=== PATIENT | male | born 1980 | race Caucasian/White ===

== ENCOUNTER 2018-11-07 10:03 | Emergency (ER) | payer MEDICAID ==
[~2018-11-07] VITALS: Ht 172.7 cm; Wt 75.7 kg
--- NOTE | 2018-11-07 10:12 | NUR ---
PATIENT AMBULATED TO ER BED 5.
[2018-11-07 10:13] VITALS: BP 130/72
--- NOTE | 2018-11-07 10:20 | NUR ---
PT COMPLAINS OF LUMP UNDER SKIN OVER RIGTH THIGH. DENIES PAIN, X 2 MONTHS. MASS IS SOFT AND MOVEABLE. SIZE APPROX DIAMETER OF A DIME. VSS; PATIENT POSITIONED FOR COMFORT; HOB ELEVATED; BEDRAILS UP X1; BED DOWN. ER MD MADE AWARE OF PT STATUS.
--- NOTE | 2018-11-07 10:48 | NUR ---
PT WAS UPSET WITH DR ASSESSMENT. WALKED OUT OF ER.
[2018-11-07 10:49] VITALS: BP 130/72
== END 2018-11-07 10:48 | disposition home or self-care (01) ==
LOC: MED 10:03
DX: L72.8 Other follicular cysts of the skin and subcutaneous tissue (principal); R45.6 Violent behavior; Z85.6 Personal history of leukemia
CPT/HCPCS: 99281

== ENCOUNTER 2019-02-07 09:50 | Emergency (ER) | payer MEDICAID ==
[~2019-02-07] VITALS: Ht 172.7 cm; Wt 77.1 kg
[2019-02-07 09:59] VITALS: BP 135/81
--- NOTE | 2019-02-07 10:05 | NUR ---
38 Y M BIB SELF C/O MOIST COUGH X 1 WEEK, ANTERIOR CHEST WALL PAIN 4/10, EPISTAXIS, FATIGUE, BODY ACHES BED IS DOWN, LOCKED, BED RAIL X 1, ERMD NOTIFIED OF PATIENT CONDITION PHM- LEUKEMIA A CHILD RX- NIQUIL, MUSINEX, TAMIFLU
--- NOTE | 2019-02-07 10:22 | NUR ---
DR HANKS AT BEDSIDE
--- NOTE | 2019-02-07 10:32 | NUR ---
RAD AT BEDSIDE
[2019-02-07 11:15] VITALS: BP 128/78
--- NOTE | 2019-02-07 11:16 | NUR ---
Patient discharged with v/s stable. Written and verbal after care instructions given and explained. Patient alert, oriented and verbalized understanding of instructions. Ambulatory with steady gait. All questions addressed prior to discharge. ID band removed. Patient advised to follow up with PMD. Rx of TESSALON PERLES, ALBUTEROL, PREDNISONE given. Patient educated on indication of medication including possible reaction and side effects. Opportunity to ask questions provided and answered.
== END 2019-02-07 11:16 | disposition home or self-care (01) ==
LOC: MED 09:50
DX: J98.01 Acute bronchospasm (principal); B34.9 Viral infection, unspecified; R03.0 Elevated blood-pressure reading, without diagnosis of hypertension; Z88.6 Allergy status to analgesic agent
CPT/HCPCS: 71045; 99283; Q0092

== ENCOUNTER 2019-11-30 16:33 | Emergency (ER) | payer MEDICAID ==
[~2019-11-30] VITALS: Ht 175.3 cm; Wt 74.8 kg
[2019-11-30 16:50] VITALS: BP 145/65
--- NOTE | 2019-11-30 16:52 | NUR ---
TRIAGE COMPLETE. VSS. RETURNED TO LOBBY TO WAIT FOR BED IN ED.
--- NOTE | 2019-11-30 17:49 | NUR ---
PT TAKEN TO BED 7.
--- NOTE | 2019-11-30 17:52 | NUR ---
ADPT C/O LEFT SIDED RIB PAIN RADIATING TO LEFT MEDIAL BACK FOR 6 DAYS. PT STATES THE PAIN EXACERBATED WHILE BREATHING. PT IS NOT ABLE TO IDENTIFY ANYTHING THAT CAN MAKE HIM BETTER. PT DENIES HAVING PERICARDICAL CHEST PAIN, SOB, NAUSEA OR VOMITING. PATIENT STATES PAIN OF 8/10 AT THIS TIME; VSS; PATIENT POSITIONED FOR COMFORT; HOB ELEVATED; BEDRAILS UP X1; BED DOWN. ER MD MADE AWARE OF PT STATUS.
--- NOTE | 2019-11-30 19:15 | NUR ---
Pt report given to LATISHA Kc. Transfer of care at this time.
--- NOTE | 2019-11-30 19:15 | NUR ---
REPORT GIVEN FROM NU GOOD. TRANSFER OF CARE GIVEN.
--- NOTE | 2019-11-30 19:24 | NUR ---
PT TAKEN TO XRAY IN W/C PT ABLE TO AMBULATE TO W/C WITHOUT ASSISTANCE.
--- NOTE | 2019-11-30 19:36 | NUR ---
PT RETURNED FROM X-RAY. PT AMBULATED FROM W/C TO BED WITHOUT ASSISTANCE.
[2019-11-30] MEDS ORDERED: KETOROLAC 60 MG/2 ML VIAL IM ONE (19:45)
--- NOTE | 2019-11-30 20:38 | NUR ---
PT RESTING IN BED EYES OPEN. RESPIRATIONS ARE EVEN AND UNLABORED. SKIN IS WARM AND DRY TO TOUCH. PT HAS C/O 6/10 LEFT SIDE PAIN. RADIATING TO L FLANK. PT DENIES SOB. O2SAT @ 98% ON RA. BED IN LOWEST POSITON AND LOCKED IN PLACE.
[2019-11-30 20:51] VITALS: BP 137/82
--- NOTE | 2019-11-30 20:53 | NUR ---
DR MUNIZ MADE AWARE THAT PT WAS D/C WITH MOTRIN AND PT HAS IBUPROFEN ALLERGY. PT STATED,"IT'S FINE I'M LEAVING I HAVE TO WORK IN A FEW HOURS AND I DON'T WANT TO KEEP WAITING."
== END 2019-11-30 20:50 | disposition home or self-care (01) ==
LOC: MED 16:33
DX: S22.32XA Fracture of one rib, left side, initial encounter for closed fracture (principal); Z88.8 Allergy status to other drugs, medicaments and biological substances; X58.XXXA Exposure to other specified factors, initial encounter; Y93.89 Activity, other specified; Y92.89 Other specified places as the place of occurrence of the external cause; Y99.8 Other external cause status
CPT/HCPCS: 71101; 96372; 99283; J1885

== ENCOUNTER 2020-02-19 05:07 | Emergency (ER) | payer MEDICAID ==
[~2020-02-19] VITALS: Ht 175.3 cm; Wt 73.2 kg
[2020-02-19 05:13] VITALS: BP 156/96
--- NOTE | 2020-02-19 05:23 | NUR ---
39 YEAR OLD MALE COMPLAINS OF SORE THROAT X 9 HOURS. PATIENT STATES HE FEELS PROGRESSIVE SWELLING SINCE HE ATE SALMON THAT HIS FAMILY MADE. PATIENT DENIES SHORTNESS OF BREATHE, RASHES, OR ANY OTHER SYMPTOMS. PATIENT AOX4, BREATHING EVEN AND UNLABORED, SKIN WARM AND DRY. BED IN LOWEST POSITION, LOCKED, BED RAIL UPX1. ERMD AT BEDSIDE PMH - LEUKEMIA AT AGE 14 ALLERGIES - IBUPROFEN
[2020-02-19] MEDS ORDERED: FAMOTIDINE 20 MG TAB PO ONE (05:25)
[2020-02-19] MEDS ORDERED: methylPREDNISolone SS 125 MG/2 ML VIAL IVP ONE (05:25)
[2020-02-19] MEDS ORDERED: methylPREDNISolone SS 125 MG in WATER STERILE 2 ML IM ONE (05:30)
[2020-02-19 06:15] VITALS: BP 156/96
--- NOTE | 2020-02-19 06:16 | NUR ---
Patient discharged with v/s stable. Written and verbal after care instructions about food allergies given and explained. Patient alert, oriented and verbalized understanding of instructions. Ambulatory with steady gait. All questions addressed prior to discharge. ID band removed. Patient advised to follow up with PMD. Rx of benadryl, pepcid, and prednisone given. Patient educated on indication of medication including possible reaction and side effects. Opportunity to ask questions provided and answered.
== END 2020-02-19 06:15 | disposition home or self-care (01) ==
LOC: MED 05:07
DX: J02.9 Acute pharyngitis, unspecified (principal); Z88.6 Allergy status to analgesic agent
CPT/HCPCS: 96372; 99283; J2930

== ENCOUNTER 2020-02-22 21:47 | Emergency (ER) | payer MEDICAID ==
[~2020-02-22] VITALS: Ht 175.3 cm; Wt 73.0 kg
[2020-02-22 21:51] VITALS: BP 154/103
[2020-02-22 22:07] VITALS: BP 154/103
== END 2020-02-22 22:07 | disposition home or self-care (01) ==
LOC: MED 21:47
DX: T78.40XA Allergy, unspecified, initial encounter (principal); Z88.6 Allergy status to analgesic agent; Z85.9 Personal history of malignant neoplasm, unspecified; X58.XXXA Exposure to other specified factors, initial encounter
CPT/HCPCS: 99283

== ENCOUNTER 2020-02-25 19:08 | Emergency (ER) | payer MEDICAID ==
[~2020-02-25] VITALS: Ht 172.7 cm; Wt 73.9 kg
[2020-02-25 19:16] VITALS: BP 138/95
--- NOTE | 2020-02-25 19:23 | NUR ---
39Y/O M CAME IN TO ER WITH COMPLAINTS OF TONGUE SWELLING AND SOME SLIGHT DIFFICULTY WITH SWALLOWING. PT CAME IN TO [facility] THIS PAST WEDNESDAY FOR ALLERGIC REACTION TO FOOD SEASONING, PT BACK IN FOR SAME SYMPTOMS TODAY. SYMPTOMS STARTED IMMEDIATELY AFTER EATING, 2 HOURS AGO. DENIES N/V/D, NO COUGH NO SIGNS OF RASH/HIVES/ANGIOEDEMA. TONGUE SLIGHTLY SWOLLEN. ABLE TO MAKE FULL SENTENCES W/O SOB. PREVIOUS ER VISIT, PRESCRIBED PEPCID,PREDNISONE, BANOPHEN. PT REPORTS TAKING MEDS TODAY FOR TONGUE SWELLING, NO ALLEVIATIONS OF SYMPTOMS.
--- NOTE | 2020-02-25 19:30 | NUR ---
PT REPORTS ONLY PAST MEDICAL HX: LEUKEMIA, DOES NOT RECEIVE ANY TREATMENTS CURRENTLY. ALLERGIES: IBUPROFEN/MOTRIN PAIN/DISCOMFORT: 01/01 SIDERAILS UP x1, ON ROOM AIR, WILL CONT. TO MONITOR.
[2020-02-25] MEDS ORDERED: EPINEPHrine 1:1000 - 1 MG/ML AMP SUBQ ONE (20:05)
--- NOTE | 2020-02-25 20:06 | NUR ---
Dr. Goodrich examining patient.
[2020-02-25] MEDS ORDERED: methylPREDNISolone SS 125 MG in WATER STERILE 2 ML IV ONE (20:10)
[2020-02-25] MEDS ORDERED: diphenhydrAMINE 50 MG/ML VIAL IVP ONE (20:10)
[2020-02-25] MEDS ORDERED: NACL 0.9% 1,000 ML IV ONE (20:10)
--- NOTE | 2020-02-25 20:12 | NUR ---
PERIPHERAL IV INSERTED SUCCESSFULLY ON FIRST ATTEMPT, RAC 20G, GOOD BLOOD RETURN, FLUSHED W/O SYMPTOMS. MEDS GIVEN. PT TOLERATED WELL. CONNECTED TO SELVAGE MACHINE OPERATOR. NO COMPLAINTS AT THIS TIME. VITALS STABLE.
[2020-02-25] MEDS ORDERED: methylPREDNISolone SS 125 MG/2 ML VIAL ONE (20:17)
[2020-02-25] MEDS ORDERED: WATER STERILE 10 ML MC ONE (20:17)
--- NOTE | 2020-02-25 21:15 | NUR ---
PT AMBULATED TO RESTROOM AND BACK TO BED W/O INCIDENT. MD IN TO ASSESS PT. VITALS WNL.
--- NOTE | 2020-02-25 23:00 | NUR ---
PT RESTING COMFORTABLY, EYES CLOSED. CONNECTED TO MONITOR, ALL VITALS WNL-BP: 138/89, HR-94, 99% RA. SIDERAILS UP x1.
[2020-02-26 01:01] VITALS: BP 141/98
--- NOTE | 2020-02-26 01:01 | NUR ---
Patient discharged with v/s stable. Written and verbal after care instructions given and explained. Patient verbalized understanding. Ambulatory with steady gait. PT IN STABLE CONDITION. All questions addressed prior to discharge. Advised to follow up with PMD.
--- NOTE | 2020-02-26 08:18 | NUR ---
Late entry. Confirmed with RN that 0.9 NS IV completed at 2119
== END 2020-02-26 01:01 | disposition home or self-care (01) ==
LOC: MED 19:08
DX: T78.09XA Anaphylactic reaction due to other food products, initial encounter (principal); K21.9 Gastro-esophageal reflux disease without esophagitis; Z85.6 Personal history of leukemia; Z88.8 Allergy status to other drugs, medicaments and biological substances
CPT/HCPCS: 96372; 96374; 96375; 99284; J0171; J1200; J2930; J7030

== ENCOUNTER 2020-03-31 18:46 | Emergency (ER) | payer MEDICAID ==
[~2020-03-31] VITALS: Ht 175.3 cm; Wt 72.6 kg
[2020-03-31 18:55] VITALS: BP 149/89
--- NOTE | 2020-03-31 18:59 | NUR ---
39 Y/O MALE FROM HOME C/O POSSIBLE ALLERGIC REACTION S/P EATING A TACO WITH HOT SAUCE AT 1315. STATES THROAT DISCOMFORT STARTED AROUND 1715. DENIES DIFFICULTY SWALLOWING/BREATHING. ABLE TO SPEAK IN FULL, CLEAR SENTENCES. DENIES PAIN. RR EVEN AND UNLABORED. CALM AND PLEASANT. MEDHX: LEUKEMIA ALLEGIES: IBUPROFEN
--- NOTE | 2020-03-31 19:05 | NUR ---
Pt report RECEIVED FROM LATISHA NUNO. ASSUMED care OF PT at this time.
--- NOTE | 2020-03-31 19:27 | NUR ---
DR ARELLANO EVALUATING PATIENT AT BEDSIDE.
--- NOTE | 2020-03-31 19:57 | NUR ---
Patient discharged with v/s stable. Written and verbal after care instructions given and explained. Patient verbalized understanding. Ambulatory with steady gait. All questions addressed prior to discharge. Advised to follow up with PMD.
[2020-03-31 19:58] VITALS: BP 149/89
== END 2020-03-31 19:58 | disposition home or self-care (01) ==
LOC: MED 18:46
DX: R13.10 Dysphagia, unspecified (principal); R68.2 Dry mouth, unspecified; F41.9 Anxiety disorder, unspecified; K21.9 Gastro-esophageal reflux disease without esophagitis; Z85.6 Personal history of leukemia; Z88.8 Allergy status to other drugs, medicaments and biological substances
CPT/HCPCS: 99281

== ENCOUNTER 2021-05-11 20:45 | Emergency (ER) | payer MEDICAID ==
[~2021-05-11] VITALS: Ht 172.7 cm; Wt 81.6 kg
[2021-05-11 20:47] VITALS: BP 150/85
--- NOTE | 2021-05-11 20:47 | NUR ---
TO BED AMBULATORY
--- NOTE | 2021-05-11 20:49 | NUR ---
40 Y/O MALE PATIENT PRESENTS TO ED WITH THROAT DISCOMFORT. PT STATES " I FEEL LIKE SOMETHING IS STUCK IN THERE, LIKE A PIECE OF FOOD, I FEEL NO PAIN BUT JUST DISCOMFORT." . DENIES N/V/D; SKIN IS PINK/WARM/DRY; AAOX4 WITH EVEN AND STEADY GAIT; LUNGS CLEAR BL; HR EVEN AND REGULAR; PT DENIES ANY FEVER, CP, SOB, OR COUGH AT THIS TIME; PATIENT STATES PAIN OF 0/10 AT THIS TIME; VSS; PATIENT POSITIONED FOR COMFORT; HOB ELEVATED; BEDRAILS UP X2; BED DOWN. ER MD MADE AWARE OF PT STATUS. ALLERGIES: IBUPROFEN PMH: LEUKEMIA
[2021-05-11 22:10] VITALS: BP 150/85
--- NOTE | 2021-05-11 22:10 | NUR ---
Patient discharged with v/s stable. Written and verbal after care instructions given and explained. Patient alert, oriented and verbalized understanding of instructions. All questions addressed prior to discharge. ID band removed. Patient advised to follow up with PMD. Patient educated on indication of medication including possible reaction and side effects. Opportunity to ask questions provided and answered.
== END 2021-05-11 22:10 | disposition home or self-care (01) ==
LOC: MED 20:45
DX: J02.9 Acute pharyngitis, unspecified (principal); R13.10 Dysphagia, unspecified; K21.9 Gastro-esophageal reflux disease without esophagitis; Z88.6 Allergy status to analgesic agent; Z85.6 Personal history of leukemia
CPT/HCPCS: 87081; 99283

== ENCOUNTER 2021-05-14 07:35 | Emergency (ER) | payer MEDICAID ==
[~2021-05-14] VITALS: Ht 175.3 cm; Wt 74.8 kg
[2021-05-14 07:42] VITALS: BP 136/103
--- NOTE | 2021-05-14 07:46 | NUR ---
Patient ambulated with steady gait to bed 2.
--- NOTE | 2021-05-14 07:50 | NUR ---
40 y/o M BIB self with c/c sore throat x 3 days. Patient A&Ox4, ambulatory, reports sore throat x 3 days; seen here on 05/11/21 and states he has not received Strep results. Patient reports throat pain /, sore/constant, non-radiating. Patient states pain worsens at night and when has ear pain when swallowing. Patient states Theraflu, Nyquil, and Andrews cough drops with temporary relief. Family at bedside. Bed locked in lowest position, side rails x 1, call light in reach. PMH/Meds/Sx: Denies Allergies: Ibuprofen (rxn: tongue swelling)
--- NOTE | 2021-05-14 08:01 | NUR ---
Dr. Arriaza is evaluating patient at bedside.
[2021-05-14] MEDS ORDERED: DEXAMETHASONE 10 MG/ML VIAL IM ONE (08:20)
[2021-05-14] MEDS ORDERED: ACET-2619 PO (08:23)
[2021-05-14] MEDS ORDERED: LIDO15SO PO (08:23)
[2021-05-14 08:35] VITALS: BP 136/103
--- NOTE | 2021-05-14 08:35 | NUR ---
Patient discharged with v/s stable. Written and verbal after care instructions given and explained. Patient alert, oriented and verbalized understanding of instructions. Ambulatory with steady gait. All questions addressed prior to discharge. ID band removed. Patient advised to follow up with PMD. Rx of Acetaminophen, Lidocaine Hcl given. Patient educated on indication of medication including possible reaction and side effects. Opportunity to ask questions provided and answered.
== END 2021-05-14 08:35 | disposition home or self-care (01) ==
LOC: MED 07:35
DX: J02.9 Acute pharyngitis, unspecified (principal); K21.9 Gastro-esophageal reflux disease without esophagitis; Z79.899 Other long term (current) drug therapy; Z88.6 Allergy status to analgesic agent; Z85.6 Personal history of leukemia
CPT/HCPCS: 96372; 99283; J1100

== ENCOUNTER 2021-05-20 10:09 | Emergency (ER) | payer MEDICAID ==
[~2021-05-20] VITALS: Ht 172.7 cm; Wt 81.6 kg
[~2021-05-20 10:09] MED LIST: ACET-2619 PO; LIDO15SO PO
--- NOTE | 2021-05-20 10:19 | NUR ---
Patient ambulated to bed 7. RN evaluating the patient at bedside.
[2021-05-20 10:25] VITALS: BP 136/71
--- NOTE | 2021-05-20 10:30 | NUR ---
40 y/o BIB self from home with c/c mouth pain x 4 days. Patient A&Ox4, ambulatory, reports he was seen here for throat pain on 05/14, discharged with Tylenol and Lidocaine. Patient states mouth and throat pain has since resolved, however, on Wednesday he noticed white blisters on top of tongue. Patient reports pain 6/10, aching/constant, that worsens with eating. Patient denies any medications prior to arrival; reports warm salt water rinses as advised from previous discharge. Pt denies N/V, fever, chills, headache, dizziness. Pt denies any medications for pain prior to arrival. VSS; RR even/unlabored. Bed locked in lowest position, side rails x 1, call light in reach. PMH: leukemia; remission for 30 yrs Allergies: ibuprofen Meds: Denies
--- NOTE | 2021-05-20 11:13 | NUR ---
Dr. Hernandez is evaluating patient at bedside.
--- NOTE | 2021-05-20 11:40 | NUR ---
Strep A swab and culture collected, handed to CPT Pato at ER bedside.
--- NOTE | 2021-05-20 11:40 | NUR ---
Lab at bedside for blood draw.
--- NOTE | 2021-05-20 11:45 | NUR ---
Patient request status update regarding discharge plan.
--- NOTE | 2021-05-20 11:50 | NUR ---
Patient requesting to leave. Advised to wait for results of lab and swabs to receive appropriate plan of care upon discharge.
--- NOTE | 2021-05-20 12:00 | NUR ---
Patient states he would like to sign out AMA due to "having things to do today." Dr. Hernandez made aware.
[2021-05-20 12:06] LABS: BASOPHILS # (AUTO) 0.1 K/uL (0.00-0.22); BASOPHILS % (AUTO) 0.8 % (0.0-2.0); EOSINOPHILS # (AUTO) 0.3 K/uL (0-0.4); EOSINOPHILS % (AUTO) 2.6 % (0.0-4.0); HEMATOCRIT 46.7 % (36-52); HEMOGLOBIN 15.8 g/dL (12.0-18.0); LYMPHOCYTES # (AUTO) 3.3 K/uL (2.0-11.5); LYMPHOCYTES % (AUTO) 32.7 % (20.5-51.1); MEAN CORPUSCULAR HEMOGLOBIN 33 pg (27-31); MEAN CORPUSCULAR HGB CONC 34 g/dL (33-37); MEAN CORPUSCULAR VOLUME 97.2 fL (80-94); MONOCYTES # (AUTO) 1.1 K/uL (0.8-1.0); MONOCYTES % (AUTO) 10.9 % (1.7-9.3); NEUTROPHILS # (AUTO) 5.4 K/uL (1.8-7.7); PLATELET COUNT (AUTO) 287 K/uL (140-450); RED CELL DISTRIBUTION WIDTH 14.5 % (11.6-13.7); WHITE BLOOD COUNT (AUTO) 10.2 K/uL (4.8-10.8)
--- NOTE | 2021-05-20 12:08 | NUR ---
Dr. Hernandez is reevaluating patient at bedside.
--- NOTE | 2021-05-20 12:14 | NUR ---
Contacted lab for ETA per Dr. Hernandez request; laboratory geneticist states HIV rapid 25min.
--- NOTE | 2021-05-20 12:17 | NUR ---
Lab called back; states HIV Rapid Screen ETA 1 hour.
--- NOTE | 2021-05-20 12:17 | NUR ---
Patient requesting to sign out AMA. Dr. Hernandez at bedside aware. MT preparing AMA paperwork. Addendum: 05/20/[address] at [address] [facility] [address] Hernandez to discharge
[2021-05-20 12:28] VITALS: BP 136/71
== END 2021-05-20 12:28 | disposition home or self-care (01) ==
LOC: MED 10:09
DX: K14.8 Other diseases of tongue (principal); K21.9 Gastro-esophageal reflux disease without esophagitis; Z88.6 Allergy status to analgesic agent; Z79.899 Other long term (current) drug therapy; Z85.6 Personal history of leukemia; Z98.890 Other specified postprocedural states
CPT/HCPCS: 36415; 85025; 87081; 99283

== ENCOUNTER 2021-05-22 05:05 | Emergency (ER) | payer MEDICAID ==
[~2021-05-22] VITALS: Ht 172.7 cm; Wt 81.6 kg
[2021-05-22 05:16] VITALS: BP 144/94
[2021-05-22 05:38] VITALS: BP 144/94
== END 2021-05-22 05:38 | disposition home or self-care (01) ==
LOC: MED 05:05
DX: R59.9 Enlarged lymph nodes, unspecified (principal)
CPT/HCPCS: 99281

== ENCOUNTER 2021-10-17 12:15 | Emergency (ER) | payer MEDICAID ==
[~2021-10-17] VITALS: Ht 175.3 cm; Wt 75.0 kg
[2021-10-17 12:30] VITALS: BP 148/74
--- NOTE | 2021-10-17 12:35 | NUR ---
C/O BILAT FOOT PAIN /SWELLING AND RT SHOULDER PAIN X 5-6 DAYS HX-LEUKEMIA, THYROID
--- NOTE | 2021-10-17 12:37 | NUR ---
PT AMB TO ER BED 2
--- NOTE | 2021-10-17 12:38 | NUR ---
PATIENT AMBULATED TO BED 2 AT THIS TIME.
[2021-10-17] MEDS ORDERED: ACET-1194 PO (13:01)
[2021-10-17 13:18] VITALS: BP 148/74
--- NOTE | 2021-10-17 13:22 | NUR ---
Patient discharged with v/s stable. Written and verbal after care instructions given and explained. Patient alert, oriented and verbalized understanding of instructions. Ambulatory with steady gait. All questions addressed prior to discharge. ID band removed. Patient advised to follow up with PMD. Rx of tylenol,lidocaine viscous given. Patient educated on indication of medication including possible reaction and side effects. Opportunity to ask questions provided and answered.
== END 2021-10-17 13:22 | disposition home or self-care (01) ==
LOC: MED 12:15
DX: M25.571 Pain in right ankle and joints of right foot (principal); M25.572 Pain in left ankle and joints of left foot; K21.9 Gastro-esophageal reflux disease without esophagitis; Z79.899 Other long term (current) drug therapy; Z88.6 Allergy status to analgesic agent; Z85.6 Personal history of leukemia
CPT/HCPCS: 81002; 99283

== ENCOUNTER 2021-11-06 10:35 | Emergency (ER) | payer MEDICAID ==
[~2021-11-06] VITALS: Ht 172.7 cm; Wt 77.1 kg
[~2021-11-06 10:35] MED LIST changes: +ACET-1194 PO; -ACET-2619 PO; -LIDO15SO PO
[2021-11-06 10:40] VITALS: BP 146/117
--- NOTE | 2021-11-06 10:51 | NUR ---
wheelchair assist to bed 03
--- NOTE | 2021-11-06 10:53 | NUR ---
41 y/o male bib self from home, c/o left ankle pain for 2 days, tingling sensation, pain has worsened. limited rom with flex and extension on left foot. pt ambulates with cane. denies fall, overexertion, or injury to area. denies sob, cough, cp, fevers or chills. upon assessment, pt has redness and slight swelling on left ankle. no abrasions, lacs or bruising visible in area. no pitting edema. pmh: leukemia, bone marrow transplant allergy: ibuprofen (throat closing, tongue swelling) med: synthroid
--- NOTE | 2021-11-06 11:39 | NUR ---
RAD at bedside
[2021-11-06] MEDS: HYDROcodone/APAP 5/325 MG 1 TAB TAB PO ONE (11:42)
--- NOTE | 2021-11-06 12:01 | NUR ---
Lab at bedside
[2021-11-06 12:12] LABS: BASOPHILS # (AUTO) 0.1 K/uL (0.00-0.22); BASOPHILS % (AUTO) 0.6 % (0.0-2.0); EOSINOPHILS # (AUTO) 0.2 K/uL (0-0.4); EOSINOPHILS % (AUTO) 1.7 % (0.0-4.0); HEMATOCRIT 43.4 % (36-52); LYMPHOCYTES # (AUTO) 3.5 K/uL (2.0-11.5); LYMPHOCYTES % (AUTO) 35.2 % (20.5-51.1); MEAN CORPUSCULAR HEMOGLOBIN 33 pg (27-31); MEAN CORPUSCULAR HGB CONC 35 g/dL (33-37); MEAN CORPUSCULAR VOLUME 94.3 fL (80-94); NEUTROPHILS # (AUTO) 5.2 K/uL (1.8-7.7); NEUTROPHILS % (AUTO) 52.5 % (42.2-75.2); PLATELET COUNT (AUTO) 264 K/uL (140-450); RED CELL DISTRIBUTION WIDTH 13.9 % (11.6-13.7); WHITE BLOOD COUNT (AUTO) 9.9 K/uL (4.8-10.8)
[2021-11-06 12:32] LABS: ANION GAP 9.6 (8-16); CARBON DIOXIDE 25.8 mmol/L (21-32); CREATININE 1.2 mg/dL (0.6-1.3); POTASSIUM 4.4 mmol/L (3.5-5.1); TOTAL BILIRUBIN 0.4 mg/dL (0.0-1.0)
--- NOTE | 2021-11-06 13:47 | NUR ---
Patient resting in position of comfort. VSS; RR even/unlabored. States 0/10 pain at this time. All pt needs met. Bed locked in lowest position, side rails x 1.
--- NOTE | 2021-11-06 14:45 | NUR ---
Pt states + relief to pain. 0/10 at this time. All pt needs met.
[2021-11-06] MEDS ORDERED: ACET-8386 PO (14:47)
[2021-11-06 15:10] VITALS: BP 117/81
--- NOTE | 2021-11-06 15:20 | NUR ---
Patient discharged with v/s stable. Written and verbal after care instructions given and explained. Patient alert, oriented and verbalized understanding of instructions. Ambulatory with steady gait. All questions addressed prior to discharge. ID band removed. Patient advised to follow up with PMD. Rx of Hydrocodone/Acetaminophen given. Patient educated on indication of medication including possible reaction and side effects. Opportunity to ask questions provided and answered.
[2021-11-07] MEDS ORDERED: COLC-30 PO (07:47)
== END 2021-11-06 15:20 | disposition home or self-care (01) ==
LOC: MED 10:35
DX: M12.872 Other specific arthropathies, not elsewhere classified, left ankle and foot (principal); M12.821 Other specific arthropathies, not elsewhere classified, right elbow; K21.9 Gastro-esophageal reflux disease without esophagitis; Z79.899 Other long term (current) drug therapy; Z88.6 Allergy status to analgesic agent; Z85.6 Personal history of leukemia
CPT/HCPCS: 36415; 73080; 73610; 73630; 80053; 85025; 85651; 86140; 99284; Q0092

== ENCOUNTER 2022-03-29 08:55 | Emergency (ER) | payer MEDICAID ==
[~2022-03-29] VITALS: Ht 175.3 cm; Wt 77.1 kg
[~2022-03-29 08:55] MED LIST changes: +ACET-8386 PO; +COLC-30 PO
[2022-03-29 09:03] VITALS: BP 141/82
--- NOTE | 2022-03-29 09:08 | NUR ---
pt ambulated to er bed 8
--- NOTE | 2022-03-29 09:28 | NUR ---
DR MCALLISTER AT BEDSIDE EVALUATING PT
--- NOTE | 2022-03-29 09:30 | NUR ---
41yo male pt c/o left ear discomfort and headache. Pt states inconsistant ear discomfort for 1 week causing 8/10 headaches. Pt denies pain at this time. Pt states "hearing a crack " in ear when blowing his nose and states " he cant hear" from affected ear. Pt states taking single dose of advil 1 hour prior to arrival to relieve headache. Pt states headaches are also sometimes caused from eye discomfort which he treats with daily otc eye drops. Pt eyes present red, pt denies eye discomfort at this time.
[2022-03-29] MEDS ORDERED: CARB15DR61 OT (09:43)
--- NOTE | 2022-03-29 09:47 | NUR ---
EMT AT BEDSIDE FOR EAR IRRIGATION
--- NOTE | 2022-03-29 09:56 | NUR ---
PT'S LEFT EAR IRRIGATED WITH NORMAL SALINE AND HYDROGEN PEROXIDE, ERMD NOTIFIED.
--- NOTE | 2022-03-29 10:19 | NUR ---
Patient discharged with v/s stable. Written and verbal after care instructions FOR [employer]ARWAX BUILDUP given and explained. Patient alert, oriented and verbalized understanding of instructions. Ambulatory with steady gait. All questions addressed prior to discharge. ID band removed. Patient advised to follow up with PMD. Rx of CARBAMIDE PEROXIDE given. Opportunity to ask questions provided and answered.
--- NOTE | 2022-03-29 10:20 | NUR ---
The patient's care was reviewed and supervised by Kristen Mari RN.
== END 2022-03-29 10:29 | disposition home or self-care (01) ==
LOC: MED 08:55
DX: H61.22 Impacted cerumen, left ear (principal); Z79.899 Other long term (current) drug therapy; Z88.6 Allergy status to analgesic agent; Z85.6 Personal history of leukemia
CPT/HCPCS: 99282

== ENCOUNTER 2022-06-01 17:01 | Emergency (ER) | payer MEDICAID ==
[~2022-06-01] VITALS: Ht 175.3 cm; Wt 79.4 kg
[~2022-06-01 17:01] MED LIST changes: +CARB15DR61 OT
[2022-06-01 17:10] VITALS: BP 154/98
[2022-06-01 18:56] VITALS: BP 154/98
== END 2022-06-01 18:58 | disposition home or self-care (01) ==
LOC: MED 17:01
DX: F41.9 Anxiety disorder, unspecified (principal); R06.02 Shortness of breath; Z72.89 Other problems related to lifestyle; Z85.6 Personal history of leukemia
CPT/HCPCS: 71045; 99283; Q0092; 93005

== ENCOUNTER 2022-07-13 13:38 | Emergency (ER) | payer MEDICAID ==
[~2022-07-13] VITALS: Ht 172.7 cm; Wt 77.6 kg
[2022-07-13 13:55] VITALS: BP 130/67
--- NOTE | 2022-07-13 16:00 | NUR ---
1ST CALL N/A IN ER LOBBY
--- NOTE | 2022-07-13 16:00 | NUR ---
PATIENT LEFT WITHOUT BEING SEEN BY DR. GRANDE. NO FURTHER CARE PROVIDED FOR PATIENT.
--- NOTE | 2022-07-13 16:30 | NUR ---
2ND CALL N/A IN ER LOBBY
--- NOTE | 2022-07-13 16:35 | NUR ---
3RD CALL N/A IN ER LOBBY
== END 2022-07-13 16:00 | disposition left against medical advice (07) ==
LOC: MED 13:38
DX: F41.9 Anxiety disorder, unspecified (principal); Z53.21 Procedure and treatment not carried out due to patient leaving prior to being seen by health care provider